=== PATIENT | male | born 1965 | race Caucasian/White ===

== ENCOUNTER 2018-08-27 18:30 | Inpatient (IN) | payer OTHER ==
[~2018-08-27] VITALS: Ht 172.7 cm; Wt 94.8 kg
[2018-08-27 18:44] VITALS: BP 195/99
[2018-08-27 19:09] LABS: ABSOLUTE BASOPHILS 0.1 thou/uL (0.0-0.2); ABSOLUTE EOSINOPHILS 0.2 thou/uL (0.0-0.7); ABSOLUTE LYMPHOCYTES 2.6 thou/uL (0.8-5.3); ABSOLUTE MONOCYTES 0.7 thou/uL (0.0-1.2); ABSOLUTE NEUTROPHILS 5.2 thou/uL (1.6-8.1); BASOPHILS 0.7 %; EOSINOPHILS 2.7 %; HEMATOCRIT 42.9 % (42.0-52.0); HEMOGLOBIN 14.8 gm/dL (14.0-18.0); LYMPHOCYTES 29.2 %; MCH 32.4 pg (26.0-34.0); MCHC 34.5 g/dL (28.0-37.0); MCV 94.1 fL (80.0-100.0); MONOCYTES 7.6 %; MPV 10.7 fl. (7.2-11.1); NUCLEATED RBCS 0 /100WBC; PLATELET COUNT* 188 thou/uL (150-400); POLYS 59.8 %; RBC 4.55 mil/uL (4.50-6.00); RDW-CV 13.3 % (10.5-14.5); WBC 8.8 thou/uL (4.0-11.0)
[2018-08-27 19:23] LABS: URINE BILIRUBIN NEGATIVE (Negative); URINE BLOOD 3+ (Negative); URINE CLARITY CLEAR; URINE COLOR YELLOW; URINE GLUCOSE-RANDOM NEGATIVE (Negative); URINE KETONES NEGATIVE (Negative); URINE LEUKOCYTES-REFLEX NEGATIVE (Negative); URINE NITRITE-REFLEX NEGATIVE (Negative); URINE PROTEIN TRACE (Negative)
[2018-08-27 19:25] LABS: CALCIUM 8.9 mg/dL (8.5-10.1)
[2018-08-27 19:35] LABS: TOTAL BILIRUBIN 0.3 mg/dL (<0.1-1.0); TOTAL PROTEIN 7.3 g/dL (6.4-8.2)
[2018-08-27 19:49] LABS: HYALINE CASTS 0-3 Few /LPF (None Seen); MUCUS None Seen strn/LPF (None Seen); SQUAMOUS 0-3 Few /LPF (0-3)
[2018-08-27 19:50] LABS: BACTERIA-REFLEX None Seen /HPF (None Seen); CRYSTALS None Seen /LPF (None Seen); URINE RBC >20 Many /HPF (0-2); URINE WBC-REFLEX None Seen /HPF (0-5)
[2018-08-27 21:52] VITALS: BP 188/83
[2018-08-27 22:15] VITALS: BP 184/89
--- NOTE | 2018-08-27 22:40 | NUR ---
ALERT AND ORIENTED X 4 MALE PATIENT TO BED 112 BY CART FROM ER IN STABLE CONDITION. SHARP PAIN OF BACK ON AND OFF. 12/24 ON ARRIVAL. MEDICATION ORDERED. MOD CLEAR EMESIS AT THIS TIME WELL. HTN. AFEBRILE. ADMISSION ROUTINES, ORDERS AND PLAN OF CARE REVIEWED. PATIENT VERBALIZES UNDERSTANDING AND IS IN AGREEMENT. ADMISSION ROUTINES IN PROGRESS. CONTINUE TO MONITOR.
[2018-08-28 04:30] VITALS: BP 152/70
--- NOTE | 2018-08-28 04:42 | NUR ---
PATIENT HAS REMAINED ALERT AND ORIENTED X 4 THROUGHOUT THE SHIFT AND RESTING AT INTERVALS ON HOURLY ROUNDS. MEDICATED Q4H FOR BACK/KIDNEY PAIN TO GOOD EFFECT. IVF'S PER ORDER. NPO AT MIDNIGHT FOR AM UROLOGY CONSULT. UP INDEPENDENTLY IN THE ROOM. STRAINING URINE. NO STONE SEEN TO THIS TIME. CONTINUE TO MONITOR.
[2018-08-28 08:00] VITALS: BP 153/59
[2018-08-28] MEDS ORDERED: PHENERGAN 25 MG25 M1 PO (11:54)
[2018-08-28] MEDS ORDERED: FLOMAX0.4 MG PO (11:54)
[2018-08-28] MEDS ORDERED: PERCOCET PO (11:54)
[2018-08-28 11:57] VITALS: BP 153/59
--- NOTE | 2018-08-28 12:38 | NUR ---
CM COMPLETED INITIAL ASSESSMENT. PT IS a&O. ACTIVE. LIVES AT HOME W/FIANCE AND 6 CHILDREN. PT IS ACTIVE, WENT TO [employer] LAST GLORIA AND THINKS THAT IS WHAT CUASE KIDNEY STONE MOVEMENT. PT IS PENDING D/C. RETURNING HOME. NO NEEDS FROM CM. CM TO REMAIN AVAILABLE TO ASSIST NEEDED.
--- NOTE | 2018-08-28 13:16 | NUR ---
DISCHARGE NOTE - REVIEWED DISCHARGE INSTRUCTIONS WITH PT AND SPOUSE. NO QUESTIONS. ALL BELONGINGS SENT WITH PT. IV REMOVED.
== END 2018-08-28 13:17 | disposition home or self-care (01) | DRG 694 ==
LOC: M.ERS 18:30 → M.TBA-ER 20:23 → M.ORTHSURG 20:23
PROVIDERS: Nurse Practitioner; ADMIT Internal Medicine
DX: N13.2 Hydronephrosis with renal and ureteral calculous obstruction (principal); F17.210 Nicotine dependence, cigarettes, uncomplicated; Z79.899 Other long term (current) drug therapy